=== PATIENT | male | born 1945 | race Caucasian/White ===

== ENCOUNTER → 2018-03-08 | Outpatient (CLI) | payer MEDICARE, OTHER ==
[~2018-03-08] MED LIST: ASPIRIN BUFFER325 MG PO; AUGMENTIN 875-1 EACH PO; BENZONATATE100 MG PO; DIGOXIN125 MCG PO; L-THYROXINE PO; LEVOTHYROXINE125 MCG PO; LIPITOR40 MG PO; OMEGA 3; PANTOPRAZOLE SO40 MG PO; PROTONIX40 MG PO; SLEEPING PILL
--- NOTE | 2018-03-08 09:56 | Diagnostic Imaging Report ---
PROCEDURE:CT RIGHT ANKLE WITHOUT CONTRAST COMPARISON:None. INDICATIONS:RIGHT ANKLE FRACTURE TECHNIQUE:Multidetector CT scanning of the right ankle was performed without IV contrast. Coronal and sagittal multiplanar reformations were obtained. FINDINGS: No evidence of acute fracture or malalignment. The ankle mortise is preserved. There are well corticated bony fragments at the medial distal tibia and lateral distal tibia (series 501, image 18), suggestive of remote trauma. There is sclerosis with fragmentation and cystic changes at the lateral aspect of the talar dome (image 20). No significant joint space narrowing at this location. Scattered mild intertarsal degenerative changes. There is a plantar calcaneal spur. There are atherosclerotic vascular calcifications. No evidence of acute soft tissue findings. CONCLUSION: No evidence of acute fracture or malalignment. Sequela of prior trauma involving the medial and lateral aspect of the distal tibia. Sclerosis and fragmentation at the lateral aspect of the talar dome. Given absence of degenerative changes at this location, findings could represent avascular necrosis in the setting of remote trauma. MRI may be considered for further evaluation. Dictated by: KATINA HUBBARD M.D. on 03/08/2018 at 10:06 Electronically approved by: KATINA HUBBARD M.D. on 03/08/2018 at 10:06
== END ==
LOC: CT 08:42
PROVIDERS: ATTEND Family Medicine
DX: S82.64XA Nondisplaced fracture of lateral malleolus of right fibula, initial encounter for closed fracture (principal)

== ENCOUNTER 2018-04-10 15:00 | Outpatient (RCR) | payer MEDICARE, OTHER | END 2018-05-02 | LOC: PT 15:00 | PROVIDERS: ATTEND Orthopaedic Surgery | DX: S93.491A Sprain of other ligament of right ankle, initial encounter (principal); M19.071 Primary osteoarthritis, right ankle and foot; M25.571 Pain in right ankle and joints of right foot; M25.671 Stiffness of right ankle, not elsewhere classified | CPT/HCPCS: 97110 ×2; 97162; G8978; G8979 ==

== ENCOUNTER → 2018-05-06 | Outpatient (CLI) | payer MEDICARE, OTHER ==
--- NOTE | 2018-05-06 11:38 | Diagnostic Imaging Report ---
EXAM: CT Chest without contrast INDICATION: Lung nodule, former smoker COMPARISON: None TECHNIQUE: Chest was scanned utilizing a multidetector helical scanner from the lung apex through the level of the adrenal glands without administration of IV contrast. Coronal and sagittal reformations were obtained. Low dose lung nodule protocol was performed. Dose modulation, iterative reconstruction, and/or weight based adjustment of the mA/kV was utilized to reduce the radiation dose to as low as reasonably achievable. RADIATION DOSE: Total DLP: 181.1 mGy*cm COMPLICATIONS: None FINDINGS: LINES/ TUBES: None. LUNGS AND AIRWAYS: The central airways are patent. No evidence of pneumonia or pulmonary edema. There is mild biapical pleural-parenchymal opacity. Mild upper lobe centrilobular emphysematous changes. There are scattered bilateral 2 mm solid pulmonary nodules, for example in the right middle lobe on series 3, image 103 and right lower lobe on images 68 and 100. PLEURA: The pleural spaces are clear. HEART AND MEDIASTINUM: The thyroid gland is normal. No mediastinal, hilar or axillary lymphadenopathy. No cardiomegaly or pericardial effusion. Coronary atherosclerosis. 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 UPPER ABDOMEN: Limited non-contrast views of the upper abdomen. Subcentimeter hypodensity within left hepatic lobe is too small to characterize, but likely represents a cyst. The visualized spleen and adrenal glands appear unremarkable. BONES/SOFT TISSUES: No acute osseous abnormality. No suspicious lytic or blastic lesions. Mild degenerative changes of the visualized spine. IMPRESSION: Mild upper lobe centrilobular emphysematous changes. Small 2 mm bilateral solid pulmonary nodules, statistically likely to be benign (Lung-RADS category 1, negative). Follow-up low dose chest CT may be considered in 12 months. Signed by: Dr. Crystal Farris MD on 05/06/2018 11:35 AM
== END ==
LOC: CT 10:31
PROVIDERS: ATTEND Family Medicine
DX: R91.1 Solitary pulmonary nodule (principal); Z87.891 Personal history of nicotine dependence
CPT/HCPCS: 71250

== ENCOUNTER → 2019-12-24 | Day surgery (SDC) | payer MEDICARE, OTHER ==
[2019-12-19 15:26] LABS: BASOPHILS # (AUTO) 0.1 (0.0-0.1); BASOPHILS % 1.4 % (0.0-1.0); EOSINOPHILS # (AUTO) 0.5 (0.0-0.4); EOSINOPHILS % 7.1 % (0.0-6.0); HEMATOCRIT 41.6 % (38.2-49.6); HEMOGLOBIN 13.7 g/dL (14.0-18.0); LYMPHOCYTES # (AUTO) 2.2 (1.0-3.2); LYMPHOCYTES % 31.7 % (18.0-39.1); MEAN CORPUSCULAR HEMOGLOBIN 30.6 pg (28-32); MEAN CORPUSCULAR HGB CONC 32.9 g/dL (31-35); MEAN CORPUSCULAR VOLUME 93.1 fL (81-99); MONOCYTES # (AUTO) 0.7 (0.2-0.8); MONOCYTES % 10.4 % (4.4-11.3); NEUTROPHILS # (AUTO) 3.4 (2.1-6.9); PLATELET COUNT 256 x10e3/uL (140-360); RED BLOOD COUNT 4.47 x10e6/uL (4.3-5.7); RED CELL DISTRIBUTION WIDTH 12.6 % (11.7-14.4)
[~2019-12-24] MED LIST changes: +EPHEDRINE SULFATE INJ 50 MG/ML VIAL ONE; +FENTANYL CITRATE/PF 100MCG/2 ML INJ ONE; +GLUCAGON FOR INJ 1 MG VIAL ONE; +LIDOCAINE HCL 2% LOCAL INJ 5 ML SDV VIAL INJ ONE; +MIDAZOLAM HCL 2 MG/2 ML VIAL ONE; +PROPOFOL IV EMULSION 10 MG/ML 20 ML VIAL ONE; +[UNRECOGNIZED DRUG - OTHER] PO
[2019-12-24 09:41] LABS: WBC,FECAL (FECAL LACTOFERRIN) NEGATIVE (NEGATIVE)
[2019-12-24 09:45] VITALS: BP 117/74
[2019-12-24 14:23] LABS: C DIFFICILE TOXIN A&B AMP PROB NEGATIVE (NEGATIVE)
== END | disposition home or self-care (01) ==
LOC: OR 06:20
PROVIDERS: ATTEND Internal Medicine Gastroenterology
DX: K52.9 Noninfective gastroenteritis and colitis, unspecified (principal); K63.5 Polyp of colon; K57.30 Diverticulosis of large intestine without perforation or abscess without bleeding; K62.89 Other specified diseases of anus and rectum; K64.8 Other hemorrhoids; K29.70 Gastritis, unspecified, without bleeding; K20.9 Esophagitis, unspecified; E78.5 Hyperlipidemia, unspecified; I49.3 Ventricular premature depolarization; Z01.810 Encounter for preprocedural cardiovascular examination; Z01.812 Encounter for preprocedural laboratory examination; Z11.59 Encounter for screening for other viral diseases; Z87.891 Personal history of nicotine dependence
CPT/HCPCS: 36415; 45380; 83630; 83993; 85025; 87045; 87177; 87328; 87493; 88305; 88313; 93005; J1610; J2001; J2250; J2704; J3010; U0002; 45378; 45384

== ENCOUNTER → 2020-04-12 | Outpatient (CLI) | payer MEDICARE, OTHER ==
[~2020-04-12] MED LIST changes: -EPHEDRINE SULFATE INJ 50 MG/ML VIAL ONE; -FENTANYL CITRATE/PF 100MCG/2 ML INJ ONE; -GLUCAGON FOR INJ 1 MG VIAL ONE; +GOLYTELY SOLU4000 ML PO; -LIDOCAINE HCL 2% LOCAL INJ 5 ML SDV VIAL INJ ONE; -MIDAZOLAM HCL 2 MG/2 ML VIAL ONE; -PROPOFOL IV EMULSION 10 MG/ML 20 ML VIAL ONE
== END ==
LOC: CT 13:35
PROVIDERS: ATTEND Family Medicine
DX: R07.81 Pleurodynia (principal); S20.219A Contusion of unspecified front wall of thorax, initial encounter; W19.XXXA Unspecified fall, initial encounter
CPT/HCPCS: 71250

== ENCOUNTER 2020-04-13 13:06 | Emergency (ER) | payer MEDICARE, OTHER ==
[~2020-04-13] VITALS: Ht 170.2 cm; Wt 73.0 kg
[~2020-04-13 13:06] MED LIST changes: -GOLYTELY SOLU4000 ML PO
[2020-04-13] MEDS ORDERED: PEG (High)/E-LYTE SOLN 4,000 ML BTL PO ONE (13:45)
[2020-04-13] MEDS ORDERED: GOLYTELY SOLU4000 ML PO (14:04)
== END 2020-04-13 14:22 | disposition home or self-care (01) ==
LOC: ER 13:38
DX: K59.00 Constipation, unspecified (principal); R10.9 Unspecified abdominal pain; E78.5 Hyperlipidemia, unspecified; E03.9 Hypothyroidism, unspecified
CPT/HCPCS: 99282